=== PATIENT | male | born 1975 | race Hispanic/Latino ===

== ENCOUNTER 2022-02-14 19:28 | Emergency (ER) | payer OTHER ==
[~2022-02-14] VITALS: Ht 170.2 cm; Wt 127.0 kg
[2022-02-14 19:57] LABS: LYMPHOCYTES % (AUTO) 35.4 % (21.0-51.0); MEAN CORPUSCULAR HGB CONC 35.8 g/dL (32.0-36.0); MEAN CORPUSCULAR VOLUME 86.5 fL (79-99); MONOCYTES % (AUTO) 9.6 % (3.0-13.0); NEUTROPHILS % (AUTO) 52.7 % (40.0-77.0); PLATELET COUNT (AUTO) 254 K/uL (130-400); RED BLOOD CELL COUNT(AUTO) 5.78 MIL/uL (4.50-6.20); WHITE BLOOD COUNT (AUTO) 9.5 K/uL (4.8-10.8)
[2022-02-14] MEDS ORDERED: HYDRALAZINE 20MG/ML VIAL IV SCH (20:00)
[2022-02-14] MEDS ORDERED: HYDRALAZINE 20MG/ML VIAL ONE (20:00)
[2022-02-14] MEDS ORDERED: 0.9%NACL 1000ML 1,000 ML IV SCH ×2 (20:00→22:00)
[2022-02-14 20:08] LABS: CREATININE 1.3 mg/dL (0.5-1.5); POTASSIUM 3.7 mmol/L (3.5-5.1)
[2022-02-14 20:15] LABS: ALBUMIN 4.5 g/dL (3.5-5.0); TOTAL PROTEIN, SERUM 8.5 g/dL (6.0-8.3)
[2022-02-14] MEDS ORDERED: ONDANSETRON 4MG INJ ONE (20:28)
[2022-02-14] MEDS ORDERED: LORAZEPAM 2 MG/ML 1 ML VIAL ONE (20:29)
[2022-02-14] MEDS ORDERED: LORAZEPAM 2 MG/ML 1 ML VIAL IM ONE (20:30)
[2022-02-14 20:40] LABS: APPEARANCE,URINE CLOUDY (CLEAR); BILIRUBIN,URINE NEGATIVE (NEGATIVE); COLOR,URINE LIGHT-YELLOW (YELLOW); GLUCOSE, URINE (UA) NEGATIVE (NEGATIVE); KETONES,URINE NEGATIVE (NEGATIVE); LEUKOCYTE ESTERASE ,URINE NEGATIVE Leu/uL (NEGATIVE); NITRATE,URINE NEGATIVE (NEGATIVE); PROTEIN,URINE NEGATIVE (NEGATIVE); UROBILINOGEN,URINE 0.2 mg/dL (0.2-1.0)
[2022-02-14 20:46] LABS: MUCUS,URINE RARE LPF (None Seen); SQUAMOUS EPITHELIAL CELL,UR RARE /HPF (0-2)
[2022-02-14 20:47] LABS: AMPHET/METH SCREEN,URINE NEGATIVE (NEGATIVE); BARBITURATE SCREEN, URINE NEGATIVE (NEGATIVE); BENZODIAZEPINES SCREEN,URINE NEGATIVE (NEGATIVE); CANNABINOID SCREEN,URINE NEGATIVE (NEGATIVE); COCAINE SCREEN,URINE NEGATIVE (NEGATIVE); OPIATE SCREEN,URINE NEGATIVE (NEGATIVE); PHENCYCLIDINE SCREEN,URINE NEGATIVE (NEGATIVE)
[2022-02-14] MEDS ORDERED: ONDANSETRON 4MG INJ IVP ONE (21:00)
[2022-02-14 23:14] VITALS: BP 165/99
== END 2022-02-14 23:22 | disposition home or self-care (01) ==
LOC: EDH 19:28
DX: H92.02 Otalgia, left ear (principal); M54.2 Cervicalgia; I10 Essential (primary) hypertension; F41.9 Anxiety disorder, unspecified; Z20.822 Contact with and (suspected) exposure to COVID-19
CPT/HCPCS: 99284; 96374; 96361; 70450; 87635; 96375; 84484; 80053; 80305; 85025; 85378; 87880; 87804 ×2; 36415; 93005 ×2; 96372; 81001; C9803; J7030 ×2; J0360; J2405; J2060